=== PATIENT | male | born 1980 | race Caucasian/White ===

== ENCOUNTER 2020-09-25 13:49 | Emergency (ER) | payer OTHER, SELFPAY ==
[2020-09-25 13:59] VITALS: BP 125/75; PULSE 110; RESP 20; TEMP 37.1; O2SAT 99
--- NOTE | 2020-09-25 14:12 | ED.BACK ---
HPI - Back Pain/Injury General Chief Complaint: Back Pain/Injury Stated Complaint: Possible injury to Back Time Seen by Provider: 09/25/20 14:16 Source: patient, RN notes reviewed and old records reviewed Mode of arrival: ambulatory Limitations: no limitations History of Present Illness HPI Narrative: 40 [facility] with complaints of injury to his back today at 1130 when he lifted on picnic table to move it and felt sharp pain in the lower back. Patient states that it first happened he had pain down his right leg, he reports also heard back make awful noise and he went straight to the ground and saw stars. Patient rates his pain at present time 12/10, took 800mg of Ibuprofen with no pain decrease.Patient denies any tingling or numbness to his lower extremities, denies any radiation of pain into lower extremities at this time, denies any difficulty with bowels or bladder or any saddle paraesthesia. MD elicited complaint: back pain and back injury Pertinent past history: recent trauma Onset (ago): hour(s) (at 1130 today) Timing: constant Severity: severe Pain scale (0-10): 10 Quality: throbbing Location: lumbar spine Exacerbating factors: movement and walking Relieving factors: none Context: while lifting Associated symptoms: denies other symptoms Treatments prior to arrival: NSAIDS Work related injury: No Related Data Allergies Allergy/AdvReac Type Severity Reaction Status Date / Time No Known Allergies Allergy Unverified 07/08/13 16:52 Review of Systems Review of Systems: Narrative: CONSTITUTIONAL: Denies fever, chills, or sweats. EYES: Denies visual changes, redness, or discharge. ENT: Denies rhinorrhea, congestion, sore throat, or otalgia. CARDIOVASCULAR: Denies chest pain, palpitations, or edema. RESPIRATORY: Denies cough or dyspnea. GASTROINTESTINAL: Denies abdominal pain, nausea, vomiting, or diarrhea. GENITOURINARY: Denies dysuria or hematuria. SKIN: Denies rash or itching. MUSCULOSKELETAL:Acute lumbar back pain, joint pain, or myalgia. NEUROLOGIC: Denies headache, numbness, or weakness. PSYCHIATRIC: Denies anxiety or depression. All systems reviewed & are unremarkable except as noted in HPI and below PMFSH Past Medical History Medical History (Updated 09/28/20 @ 16:28 by Lizzie Cooley NP) No pertinent past medical history Surgical History Surgical History (Updated 09/28/20 @ 16:28 by Lizzie Cooley NP) No history of previous surgery Family History Family History (Updated 09/28/20 @ 16:28 by Lizzie Cooley NP) Other No significant family history Social History Social History (Updated 09/28/20 @ 16:29 by Lizzie Cooley NP) Smoking packs per day: 1 Smoking cigarettes per day: 20.0 Years smoked: 20 Smoking pack-years: 20.00 Smoking status: Current every day smoker Alcohol intake: current Alcohol use details: social Substance use: never Living arrangements: with family Gender identity (if verbalized by the patient): Male Comments At time of signature, agree with nursing past medical, surgical, social and family history. There is no relevant family history pertinent to the presenting complaint Exam Narrative: Exam Narrative: GENERAL: Well-appearing, well-nourished, and in stated acute distress. HEAD: Normocephalic, atraumatic. EYES: PERRLA and EOMI. ENT: Nares clear, no rhinorrhea or epistaxis. Mucous membranes moist.TM's normal with good light reflex, throat pink with no lesions exudates or tonsil enlargement. NECK: Supple. no lymphadenopathy CHEST: Clear to auscultation. No respiratory distress.SAO2 99% on room air. HEART: Regular rate and rhythm. No murmur heard. Normal peripheral pulses. ABDOMEN: Soft, nontender, nondistended, normal active bowel sounds. EXTREMITIES: Normal range of motion. No edema.Pain to lumbar region with movement and palpation, no SI pain on palpation, denies any radiation of pain down legs or any tingling or
== END 2020-09-25 14:35 | disposition home or self-care (01) ==
PROVIDERS: Emergency Provider Registered Nurse; PCP Student in an Organized Health Care Education/Training Program
DX: S39.012A Strain of muscle, fascia and tendon of lower back, initial encounter (principal); X50.0XXA Overexertion from strenuous movement or load, initial encounter; F17.210 Nicotine dependence, cigarettes, uncomplicated
CPT/HCPCS: 99203; G0463

== ENCOUNTER 2024-08-16 16:17 | Emergency (ER) | payer OTHER, SELFPAY ==
[2024-08-16 16:22] VITALS: BP 176/98; PULSE 96; RESP 20; TEMP 36.6; O2SAT 99
--- NOTE | 2024-08-16 16:43 | ED.SKABFB ---
HPI - Skin/Abscess/Foreign Bdy General Chief complaint: Skin/Abscess/Foreign Body Stated complaint: Rash Time Seen by Provider: 08/16/24 16:44 Source: patient Mode of arrival: ambulatory Limitations: no limitations History of Present Illness HPI narrative: 44-year-old male presents with itchy, tender rash to chest extending around to mid back for 2-3 days. Thought he had chigger bites today. Was at a friend's house who told him he had shingles. All Systems reviewed and negative except as noted above. Related Data Allergies Allergy/AdvReac Type Severity Reaction Status Date / Time No Known Allergies Allergy Unverified 07/08/13 16:52 Review of Systems Review of Systems: CONSTITUTIONAL: Denies fever, chills, or sweats. EYES: Denies visual changes, redness, or discharge. ENT: Denies rhinorrhea, congestion, sore throat, or otalgia. CARDIOVASCULAR: Denies chest pain, palpitations, or edema. RESPIRATORY: Denies cough or dyspnea. GASTROINTESTINAL: Denies abdominal pain, nausea, vomiting, or diarrhea. GENITOURINARY: Denies dysuria or hematuria. SKIN: reports itchy, tender rash to trunk MUSCULOSKELETAL: Denies back pain, joint pain, or myalgia. NEUROLOGIC: Denies headache, numbness, or weakness. PSYCHIATRIC: Denies anxiety or depression. All other systems reviewed are negative, except as documented in HPI. [facility] Past Medical History Medical History (Updated 08/16/24 @ 16:52 by Nemo Conway NP) No pertinent past medical history Surgical History Surgical History (Updated 09/28/20 @ 16:28 by Lizzie Cooley NP) No history of previous surgery Family History Family History (Updated 09/28/20 @ 16:28 by Lizzie Cooley NP) Other No significant family history Social History Social History (Updated 09/28/20 @ 16:29 by Lizzie Cooley NP) Smoking packs per day: 1 Smoking cigarettes per day: 20.0 Years smoked: 20 Smoking pack-years: 20.00 Smoking status: Current every day smoker Alcohol intake: current Alcohol use details: social Substance use: never Living arrangements: with family Gender identity (if verbalized by the patient): Male Comments At time of signature, agree with nursing past medical, surgical, social and family history. There is no relevant family history pertinent to the presenting complaint. Exam Narrative: GENERAL: This is a well-nourished, well-developed patient, in no apparent distress. HEAD: normocephalic, atraumatic. EYES: PERRL. Sclera clear/white. Vision is grossly intact. EARS: External ears normal NOSE: External nose normal NECK: Neck supple, non-tender without lymphadenopathy, masses or thyromegaly. CARDIOVASCULAR: Regular rate and rhythm without murmurs, gallops, or rubs. RESPIRATORY: Clear to auscultation. Breath sounds equal bilaterally. No wheezes, rales, or rhonchi. SKIN: warm, Dry, intact with , good texture and turgor. erythematous, purplish vesicular rash from right side upper abdomen extending around to mid back. NEURO: awake, alert, and oriented to person, place and time. There were no obvious focal neurologic abnormalities. EXTREMITIES: No joint tenderness, effusion, or edema noted. Course Course Level of Care: Express Care Visit Vital Signs Vital signs: Vital Signs Temperature 36.6 C 08/16/24 16:22 Pulse Rate 96 08/16/24 16:22 Respiratory Rate 20 08/16/24 16:22 Blood Pressure 176/98 H 08/16/24 16:22 Pulse Oximetry 99 08/16/24 16:22 Oxygen Delivery Room Air 08/16/24 16:22 Temperature 36.6 C 08/16/24 16:22 Pulse Rate 96 08/16/24 16:22 Respiratory Rate 20 08/16/24 16:22 Blood Pressure 176/98 H 08/16/24 16:22 Pulse Oximetry 99 08/16/24 16:22 Oxygen Delivery Room Air 08/16/24 16:22 Reviewed MDM - Skin/Abscess/Foreign Bdy MDM Narrative Medical decision making narrative: will treat shingles with antiviral, lidocaine ointment. Patient is well-appearing, nontoxic. Discharge Plan Discharge Clinical Impression: Shingles, Elevated blood pressure reading Patient Disposition: Home Condition: Stable Instructions: Shingles (ED) Additional Instructions: Take medications as prescribed. Hydroxyzine may cause drowsiness, do not take while driving. Take ibuprofen or Tylenol every 6-8 hours as needed for pain. Your blood pressure was elevated today follow-up with your primary care physician in 1 week. Patient Language: Danish Prescriptions: New famciclovir 500 mg tablet 500 mg PO Q8H 7 Days Qty: 21 0RF lidocaine 5 % ointment 1 applic topical QID PRN (Reason: pain) Qty: 30 0RF Rx Instructions: apply sparingly to shingles rash hydroxyzine HCl 10 mg tablet 10 mg PO Q6-8H PRN (Reason: itching) Qty: 30 0RF Follow-up/Referrals: Anthony,MD Vinayak [Primary Care Provider] - 1 Week Time of Disposition: 16:52
--- OUTSIDE RECORDS SUMMARY | 2024-08-16 17:06 | XMS_ITS | Referral Summary ---
Author Organization [address] lt Address [address] [place] [address] Care Team Providers Care Probate Paralegal Name Role Phone No, Physician Unavailable Kale Cruz MD Primary Care Provider [phone] Allergies No known active allergies Medications sertraline (ZOLOFT) 25 mg tabletIndication s:Generalized anxiety disorder Take 1 tablet (25 mg total) by mouth daily 90 tablet 1 03/31/2020 Active nicotine (NICODERM CQ) 14 mgIndications:Mo derate tobacco use disorder Place 1 patch on the skin daily for 14 days 14 patch 03/31/2020 Active meloxicam (MOBIC) 15 mg tablet TAKE 1 TABLET BY MOUTH EVERY DAY 30 tablet 06/07/2020 Active Active Problems Problem Noted Date Diagnosed Date Generalized anxiety disorder 02/03/2020 Assessment & Plan (02/03/2020 3:05 PM COIN MACHINE SERVICE REPAIRER): Patient is interested in medical therapy today, will start sertraline today for generalized anxiety disorder Possible check TSH given recent increase in anxiety as well as hypertension and tachycardia Moderate tobacco use disorder 02/03/2020 Assessment & Plan (02/03/2020 3:05 PM COIN MACHINE SERVICE REPAIRER): Smokes about 1 pack per day Will start nicotine patches 21 mg for 4 weeks Reassess in 4 weeks and begin to taper patch dose Immunizations Immunization Administration Dates Next Due Influenza, Unspecified 12/08/2019,03/03/2018 Social History Tobacco Use Types Packs/Day Years Used Date Smoking Tobacco: Every Day Smokeless Tobacco: Never Comments:1 PPD PHQ-2 Answer Date Recorded PHQ-2 Total Score (If total score is 3 or more points, staff should administer the PHQ-9) 0 02/03/2020 Personal Safety Answer Date Recorded Getting School Help Needed Not on file 05/16 Sex and Gender Information Value Date Recorded Sex Assigned at Not on file Legal Sex Male 3:56 PM COIN MACHINE SERVICE REPAIRER Gender Identity Not on file Sexual Orientation Not on file Last Filed Vital Signs Vital Sign Reading Time Taken Comments Blood Pressure 158/90 02/03/2020 1:24 PM COIN MACHINE SERVICE REPAIRER Pulse 130 02/03/2020 1:19 PM COIN MACHINE SERVICE REPAIRER Temperature 37 C (98.6 F) 02/03/2020 1:19 PM COIN MACHINE SERVICE REPAIRER Respiratory Rate 16 02/03/2020 1:19 PM COIN MACHINE SERVICE REPAIRER Oxygen Saturation 98% 02/03/2020 1:19 PM COIN MACHINE SERVICE REPAIRER Inhaled Oxygen Concentration - - Weight 79.7 kg (175 lb 9.6 oz) 02/03/2020 1:19 P M COIN MACHINE SERVICE REPAIRER Height 180.3 cm (5' 11) 02/03/2020 1:19 PM COIN MACHINE SERVICE REPAIRER Body Mass Index 24.49 02/03/2020 1:19 PM COIN MACHINE SERVICE REPAIRER Plan of Treatment Not on file Insurance [facility] [employer] Care Teams Probate Paralegal Relationship Specialty Start Date End Date Kale Cruz MD [address] [place] [address] PCP - General Family Medicine 02/03/20 No, Physician 02/02/20
--- OUTSIDE RECORDS SUMMARY | 2024-08-16 17:06 | XMS_ITS | Clinical Summary ---
Author Organization [address] lt Address [address] [place] [address] Care Team Providers Care Personal Financial Planner Name Role Phone No, Physician Unavailable Kale Cruz MD Primary Care Provider [phone] Allergies No known active allergies Medications sertraline [...] 02/03/2020 Assessment & Plan (02/03/2020 3:05 PM ANIMAL PARK CODE ENFORCEMENT OFFICER): Patient is interested in medical therapy today, will start sertraline today for generalized anxiety disorder Possible check TSH given recent increase in anxiety as well as hypertension and tachycardia Moderate tobacco use disorder 02/03/2020 Assessment & Plan (02/03/2020 3:05 PM ANIMAL PARK CODE ENFORCEMENT OFFICER): Smokes about 1 pack per day Will start nicotine patches 21 mg for 4 weeks Reassess in 4 weeks and begin to taper patch dose Immunizations Immunization Administration Dates Next Due Influenza, Unspecified 12/08/2019,03/03/2018 Family History Medical History Relation Name Comments Stomach cancer Mother Relation Name Status Comments Father Mother Social History Tobacco Use Types Packs/Day Years [...] on file Legal Sex Male 3:56 PM ANIMAL [employer] ENFORCEMENT OFFICER Gender Identity Not on file Sexual Orientation Not on file Obstetrics History Last Filed Vital Signs Vital Sign Reading Time Taken Comments Blood Pressure 158/90 02/03/2020 1:24 PM ANIMAL [employer] CODE ENFORCEMENT OFFICER Pulse 130 02/03/2020 1:19 PM ANIMAL PARK CODE ENFORCEMENT OFFICER Temperature 37 C (98.6 F) 02/03/2020 1:19 PM ANIMAL PARK CODE ENFORCEMENT OFFICER Respiratory Rate 16 02/03/2020 1:19 PM ANIMAL [employer] CODE ENFORCEMENT OFFICER Oxygen Saturation 98% 02/03/2020 1:19 PM ANIMAL [employer] CODE ENFORCEMENT OFFICER Inhaled Oxygen Concentration - - Weight 79.7 kg (175 lb 9.6 oz) 02/03/2020 1:19 P M ANIMAL [employer] ENFORCEMENT OFFICER Height 180.3 cm (5' 11) 02/03/2020 1:19 PM ANIMAL [employer] CODE ENFORCEMENT OFFICER Body Mass Index 24.49 02/03/2020 1:19 PM ANIMAL P[employer] CODE ENFORCEMENT OFFICER Plan of Treatment Not on file Insurance Care Teams Personal Financial Planner Relationship Specialty Start Date End Date Kale Cruz MD [address] [place] [address] PCP - General Family Medicine 02/03/20 No, Physician 02/02/20
== END 2024-08-16 17:09 | disposition home or self-care (01) ==
PROVIDERS: Emergency Provider Nurse Practitioner Family; PCP Student in an Organized Health Care Education/Training Program
DX: B02.9 Zoster without complications (principal); R03.0 Elevated blood-pressure reading, without diagnosis of hypertension; F17.210 Nicotine dependence, cigarettes, uncomplicated
CPT/HCPCS: 99213; G0463